=== PATIENT | male | born 2000 | race African-American/Black ===

== ENCOUNTER 2020-11-23 16:49 | Emergency (ER) | payer OTHER ==
[~2020-11-23] VITALS: Ht 177.8 cm; Wt 61.2 kg
[2020-11-23 17:33] LABS: ABSOLUTE NEUTROPHILS 6.3 thou/uL (1.4-8.2); BASOPHILS 0.6 % (0.0-2.0); EOSINOPHILS 0.5 % (0.0-3.0); HEMATOCRIT 44.6 % (42.0-52.0); HEMOGLOBIN 14.8 gm/dL (14.0-18.0); LYMPHOCYTES 17.6 % (24.0-44.0); MCH 26.7 pg (26.0-34.0); MCHC 33.1 g/dL (28.0-37.0); MCV 80.6 fL (80.0-100.0); MONOCYTES 5.1 % (1.0-8.0); PLATELET COUNT 288 thou/uL (150-400); POLYS 76.2 % (36.0-66.0); RBC 5.54 mil/uL (4.50-6.00); RDW 13.7 % (10.5-14.5); WBC 8.2 thou/uL (4.0-11.0)
[2020-11-23 17:46] LABS: APTT 24.5 Seconds (24.5-32.8); CALCIUM 9.6 mg/dL (8.5-10.1); CREATININE 1.1 mg/dL (0.7-1.3); INR 1.08; PROTIME 11.7 Seconds (10.5-12.1)
[2020-11-23 17:50] LABS: ALBUMIN 4.4 g/dL (3.4-5.0); TOTAL BILIRUBIN 0.3 mg/dL (0.2-1.0); TOTAL PROTEIN 7.9 g/dL (6.4-8.2)
[2020-11-23] MEDS ORDERED: OMEPRAZOLE 20 M20 M1 PO (19:33)
[2020-11-23] MEDS ORDERED: ZOFRAN ODT4 MG PO (19:33)
[2020-11-23 19:50] VITALS: BP 134/80
== END 2020-11-23 20:03 | disposition home or self-care (01) ==
LOC: ER 16:49
PROVIDERS: Emergency Medicine
DX: R11.10 Vomiting, unspecified (principal); R10.10 Upper abdominal pain, unspecified; Z98.890 Other specified postprocedural states